=== PATIENT | female | born 1990 | race Two or more races ===

== ENCOUNTER 2023-02-05 12:12 | Day surgery (SDC) | payer OTHER ==
[~2023-02-05 12:12] MED LIST: BUPIVACAINE 0.25% PF 30 ML VIAL ONE
[2023-02-05] MEDS ORDERED: ceFAZolin 2 GM VIAL ONE (12:31)
[2023-02-05] MEDS ORDERED: ePHEDrine 50 MG/ML VIAL IVP PRN (12:54)
[2023-02-05] MEDS ORDERED: fentaNYL 100 MCG/2 ML VIAL IVP PRN (12:54)
[2023-02-05] MEDS ORDERED: NALOXONE 0.4 MG/ML VIAL IVP PRN (12:54)
[2023-02-05] MEDS ORDERED: ONDANSETRON 4 MG/2 ML VIAL IVP PRN ×2 (12:54→16:08)
[2023-02-05] MEDS ORDERED: HYDROmorphone 0.5 MG/0.5 ML SYRINGE IVP PRN (12:54)
[2023-02-05] MEDS ORDERED: ATROPINE ABBOJECT 1 MG/10 ML SYRINGE IVP PRN (12:54)
--- NOTE | 2023-02-05 12:54 | ANESTHESIA ---
Pre-Anesthesia VS, & Labs - Diagnosis gallstones - Procedure lap amina Vital Signs: Temp Pulse Resp BP Pulse Ox O2 Flow Rate 36.0 C L 61 16 110/76 99 02/05/23 12:39 02/05/23 12:39 02/05/23 12:39 02/05/23 12:39 02/05/23 12:39 Height: 5 ft 4 in Weight (kg): 79.3 kg Body Mass Index: 29.9 BMI Classification: Overweight - NPO >8 hours - Is Patient ?: No - Lab Results Lab results reviewed: Yes Home Medications and Allergies No Known Home Medications 12/27/22 Allergies/Adverse Reactions: Allergies Allergy/AdvReac Type Severity Reaction Status Date / Time No Known Drug Allergies Allergy Verified 12/27/22 12:07 Anes History & Medical History - Anesthetic History Anesthesia Complications: reports: No previous complications Family history of Anesthesia Complications: Denies Family history of Malignant Hyperthermia: Denies - Medical History Cardiovascular: reports: None Pulmonary: reports: None Gastrointestinal: reports: None Urinary: reports: None Musculoskeletal: reports: None Endocrine/Autoimmune: reports: None Skin: reports: None Smoking Status: Never smoker Exam General: Alert, Oriented x3, Cooperative Dental: WNL Mouth Openin Fingerbreadth Neck Mobility: Normal Mallampati classification: II Thyromental Distance: 4-6 cm Respiratory: Lungs clear Cardiovascular: Regular rate Plan Anesthesia Type: General Consent for Procedure(s) Verified and Reviewed: Yes Code Status: Attempt Resuscitation ASA classification: 1-Healthy patient Is this case an emergency?: No
[2023-02-05] MEDS ORDERED: LACTATED RINGERS 1,000 ML IV SCH (13:00)
[2023-02-05] MEDS ORDERED: LACTATED RINGERS 1,000 ML IV ONE ×4 (13:02→16:58)
[2023-02-05 13:04] LABS: HCG UR QUAL NEGATIVE
[2023-02-05] MEDS ORDERED: ONDANSETRON 4 MG/2 ML VIAL ONE ×3 (14:13→17:07)
[2023-02-05] MEDS ORDERED: KETOROLAC 30 MG/ML VIAL ONE (14:13)
[2023-02-05] MEDS ORDERED: fentaNYL 100 MCG/2 ML VIAL ONE (14:13)
[2023-02-05] MEDS ORDERED: ROCURONIUM 50 MG/5 ML VIAL ONE (14:13)
[2023-02-05] MEDS ORDERED: PROPOFOL 500 MG/50 ML 500 MG/50 ML VIAL ONE (14:13)
[2023-02-05] MEDS ORDERED: ACETAMINOPHEN 1,000 MG/100 ML 1,000 MG/100 ML BAG IV ONE (14:46)
[2023-02-05] MEDS ORDERED: BUPIVACAINE 0.25% PF 30 ML VIAL SUBQ ONE (14:57)
[2023-02-05] MEDS ORDERED: LIDOCAINE-PF 2% 10 ML AMP SUBQ ONE (15:28)
[2023-02-05] MEDS ORDERED: SUGAMMADEX 200 MG/2 ML VIAL IVP ONE (15:28)
[2023-02-05] MEDS ORDERED: PROPOFOL 200 MG/20 ML VIAL IVP ONE (15:31)
[2023-02-05] MEDS ORDERED: HYDROcod/ACETAM 5/325 MG TABLET PO PRN (16:08)
--- NOTE | 2023-02-05 16:14 | OPERATIVE REPORT ---
Operative Report - General Procedure Date: 02/05/23 Planned Procedure: lap amina Pre-Op Diagnosis: chronic cholecystitis and hx gallstone pancreatitis Procedure Performed: lap amina Post Op Diagnosis: same - Procedure Note Primary Surgeon: herlinda siu Anesthesia Technique: General ET tube, Local Pathology: gallbladder and node Estimated Blood Loss (mL): 2 Drain/Tube Type: Other (none) Indications: as above Findings: large gallbladder. normal cbd and common hepatic duct Complications: none - Other Other Information/Narrative: The patient was properly identified, brought to the operating room and placed in supine position. Sequential compression devices were placed. General endotracheal anesthesia was induced. The patient was prepped and draped in a sterile fashion and given preoperative antibiotics. Local anesthetic was given to incision areas. An incision was made in the periumbilical area. Dissection proceeded down to fascia. The fascia was incised lifted upwards and abdomen entered with a Veress needle. CO2 was insufflated to a pressure of 15. An 11 mm trocar followed by a 30 degree scope was placed. There was no evidence of i njury from Veress needle or trocar placement. Under direct vision 2 5 mm trochars were placed in the right upper quadrant and an 11 mm trocar was placed in the epigastrium. Body of the gallbladder was retracted anterior. Lateral attachments were partially taken down further mobilizing the gallbladder more anterior and away from the duodenum. The infundibulum of the gallbladder was then retracted right lateral and caudad. With minimal use of cautery a large bare cystic plate area or window was carefully created. The cystic duct was inspected from right lateral and left lateral positions. [] The cystic duct was then clipped at the gallbladder and 3 times slightly proximal and sharply divided. The cystic artery was clipped at the gallbladder and then 2 times slightly proximal and sharply divided. The gallbladder was mobilized off from the bed of the liver with hook cautery. The gallbladder was placed in Endo Catch bag and brought out through the epigastric trocar site. Hemostasis was assured. Trochars were removed under direct vision. Fascia at the larger trocar sites was closed with [id number] are running 0 Vicryl suture. Subcutaneous tissue was irrigated and skin closed with interrupted 4-0 Monocryl. Dressings were applied. Patient tolerated the procedure well was awakened and brought to recovery in good condition.
[2023-02-05 18:38] VITALS: O2SAT 100
[2023-02-05 19:24] VITALS: BP 113/70
--- NOTE | 2023-02-09 12:10 | ANESTHESIA POST OP EVALUATION ---
Anesthesia Post Eval - Post Anesthesia Eval Vitals: Last Vital Signs Temp 36.8 C 02/05/23 18:56 Pulse 50 L 02/05/23 18:56 Resp 14 02/05/23 18:56 BP 113/70 02/05/23 18:56 Pulse Ox 100 02/05/23 18:56 O2 Flow Rate CV Function Including HR & BP: Stable Pain Control: Satisfactory Nausea & Vomiting: Negative Mental Status: Baseline Respiratory Status: Airway Patent Hydration Status: Satisfactory Anesthesia Complications: None
== END 2023-02-05 19:10 | disposition home or self-care (01) ==
LOC: SDS 12:12 → MS2 18:13 → SDS 19:10
PROVIDERS: ATTEND Surgery
PROC: 0FT44ZZ Resection of Gallbladder, Percutaneous Endoscopic Approach (ICD-10-PCS; principal; 2023-02-05 13:30)
DX: K80.20 Calculus of gallbladder without cholecystitis without obstruction (principal); Z87.19 Personal history of other diseases of the digestive system; Z32.02 Encounter for pregnancy test, result negative
CPT/HCPCS: 47562; 81025; J0131; J7120